=== PATIENT | female | born 1955 | race Caucasian/White ===

== ENCOUNTER 2021-02-21 09:02 | Day surgery (SDC) | payer MEDICARE, MEDICAID ==
[2021-02-14 14:49] LABS: ALBUMIN 3.8 G/DL (3.4-5.0); ALBUMIN/GLOBULIN RATIO 0.9 (1.1-1.5); ALKALINE PHOSPHATASE 114 IU/L (46-116); BASOPHILS # (AUTO) 0.1 X10'3 (0-0.2); BASOPHILS % (AUTO) 0.4 % (0-1); BLOOD UREA NITROGEN 14 MG/DL (7-18); BUN/CREATININE RATIO 17.3 (6.6-38.0); CALCIUM 9.9 MG/DL (8.5-10.1); CHLORIDE 102 MMOL/L (99-107); CREATININE 0.81 MG/DL (0.40-0.90); EOSINOPHILS # (AUTO) 0.2 X10'3 (0-0.9); EOSINOPHILS % (AUTO) 1.4 % (0-6); LYMPHOCYTES # (AUTO) 3.9 X10'3 (1.1-4.8); LYMPHOCYTES % (AUTO) 27.4 % (21-51); MEAN CORPUSCULAR HEMOGLOBIN 29.9 PG (27.0-31.0); MEAN CORPUSCULAR HGB CONC 34.1 g/dL (33.0-36.5); MEAN CORPUSCULAR VOLUME 87.7 FL (78-98); MONOCYTES # (AUTO) 0.8 X10'3 (0-0.9); MONOCYTES % (AUTO) 5.9 % (2-12); NEUTROPHILS # (AUTO) 9.3 X10'3 (1.8-7.7); NEUTROPHILS % (AUTO) 64.9 % (42-75); PRE OP ALT 35 U/L (30-65); PRE OP ANION GAP 12 (8-16); PRE OP AST 21 U/L (10-37); PRE OP BILIRUB, TOTAL 0.3 MG/DL (0.0-1.0); PRE OP HEMATOCRIT 42.5 % (35.0-45.0); PRE OP HEMOGLOBIN 14.5 g/dL (12.0-16.0); PRE OP PLATELET COUNT 336 X10'3 (140-440); PRE OP SODIUM 145 MMOL/L (135-145); RED BLOOD COUNT 4.85 X10'6 (4.20-5.60); TOTAL CARBON DIOXIDE 31.3 MMOL/L (24-32); eGFR 71 ML/MIN
[2021-02-14 14:53] LABS: PRE OP GLUCOSE 123 MG/DL (70-104)
[2021-02-14 14:54] LABS: PRE OP POTASSIUM 3.1 MMOL/L (3.4-5.1)
[~2021-02-21] VITALS: Ht 157.5 cm; Wt 88.9 kg
[~2021-02-21 09:02] MED LIST: AMLO2.5T5 PO; ASPI-1265 PO; BUPIVAcaine/PF 2.5 mg/ml (0.25%) 30ml vial ONE; BUPR-94 PO; CHLO25TA10 PO; CITA20TA27 PO; CYCL10TA26 PO; HYDR-3973 PO; IBUP-1985 PO; MELA10TA PO; PANT-47 PO; POTA10TA21 PO; ROPI0.5T4 PO; SIMV10TA98 PO; cefazolin/dext.iso 2gm/50ml 50 ML IV ONE; famotidine 20mg tablet PO ONE; ringers solution, lacted 1,000 ML IV SCH
[2021-02-21 09:30] VITALS: BP 116/66
[2021-02-21] MEDS ORDERED: LIDOcaine 0.5% (5mg/ml) 50ml vial ONE (11:16)
[2021-02-21] MEDS ORDERED: midazolam 1 mg/ML 2ml injection ONE (11:19)
[2021-02-21] MEDS ORDERED: fentaNYL/PF 50MCG/1 ML 2ML syringe ONE (11:19)
[2021-02-21 11:44] VITALS: BP 143/100
--- NOTE | 2021-02-21 11:44 | NUR ---
VReceived from OR via [facility] , accompanied by Anesthesiologist HOLGER and report given by Anesthesiolgist. PATIENT WITH 20G PIV IN LEFT HAND RUNNING LR AT 100. DENIES PAIN RIGHT WRIST DRESSING IS CDI + CAP REFILL AND SENSATION. Addendum: 02/21/21 at 1154 by Lion Lomas RN, RN Amended: Links added.
[2021-02-21] MEDS ORDERED: morphine 2 MG/ML inj. syringe IV PRN (11:45)
[2021-02-21] MEDS ORDERED: morphine 4 MG/ML inj SYRINge IV PRN (11:45)
[2021-02-21] MEDS ORDERED: meperidine/PF 25mg/ml syringe IV PRN ×3 (11:45)
[2021-02-21] MEDS ORDERED: ondansetron/PF 4mg/2ml inj IV PRN (11:45)
[2021-02-21] MEDS ORDERED: proCHLORperazine 10 MG/2 ml inj IV PRN (11:45)
[2021-02-21] MEDS ORDERED: ringers solution, lacted 1,000 ML IV SCH (11:45)
[2021-02-21 11:54] VITALS: BP 130/68
[2021-02-21 12:04] VITALS: BP 128/71
[2021-02-21 12:14] VITALS: BP 121/73
[2021-02-21 12:24] VITALS: BP 128/74
--- NOTE | 2021-02-21 12:34 | NUR ---
ALL CRITERIA FOR DC HOME HAS BEEN MET. IV OUT . ALL INSTRUCTIONS COVERED AND PATIENT DENIES PAIN. OUT VIA WHEELCHAIR TO PERSONAL VEHICLE WHERE SHE WAS TAKEN HOME. Addendum: 02/21/21 at 1308 by Lion Lomas RN, RN Amended: Links added.
== END 2021-02-21 12:34 | disposition home or self-care (01) ==
LOC: PAS 09:02
PROVIDERS: ATTEND Orthopaedic Surgery Hand Surgery
DX: G56.01 Carpal tunnel syndrome, right upper limb (principal); J44.9 Chronic obstructive pulmonary disease, unspecified; G47.30 Sleep apnea, unspecified; I10 Essential (primary) hypertension; F41.9 Anxiety disorder, unspecified; F32.9 Major depressive disorder, single episode, unspecified; K21.9 Gastro-esophageal reflux disease without esophagitis; G43.909 Migraine, unspecified, not intractable, without status migrainosus; E66.9 Obesity, unspecified; Z68.34 Body mass index [BMI] 34.0-34.9, adult; Z20.822 Contact with and (suspected) exposure to COVID-19; Z79.899 Other long term (current) drug therapy; Z88.8 Allergy status to other drugs, medicaments and biological substances; Z90.710 Acquired absence of both cervix and uterus; Z90.49 Acquired absence of other specified parts of digestive tract; Z98.890 Other specified postprocedural states; Z87.891 Personal history of nicotine dependence
CPT/HCPCS: 29848; 36415; 80053; 82948; 85025; 93005; J2001; J2250; J3010; J3490; U0003; U0005; Z7506; Z7512; A4215; A7000; J7120

== ENCOUNTER 2021-04-07 05:22 | Day surgery (SDC) | payer MEDICARE, MEDICAID ==
[2021-03-31 12:02] LABS: BASOPHILS % (AUTO) 0.6 % (0-1); EOSINOPHILS # (AUTO) 0.2 X10'3 (0-0.9); EOSINOPHILS % (AUTO) 1.4 % (0-6); LYMPHOCYTES # (AUTO) 3.8 X10'3 (1.1-4.8); LYMPHOCYTES % (AUTO) 31.6 % (21-51); MEAN CORPUSCULAR HEMOGLOBIN 29.4 PG (27.0-31.0); MEAN CORPUSCULAR HGB CONC 33.8 g/dL (33.0-36.5); MEAN PLATELET VOLUME 7.7 FL (7.4-10.4); MONOCYTES # (AUTO) 0.7 X10'3 (0-0.9); MONOCYTES % (AUTO) 5.9 % (2-12); NEUTROPHILS # (AUTO) 7.3 X10'3 (1.8-7.7); NEUTROPHILS % (AUTO) 60.5 % (42-75); PRE OP HEMATOCRIT 42.1 % (35.0-45.0); PRE OP HEMOGLOBIN 14.2 g/dL (12.0-16.0); PRE OP PLATELET COUNT 341 X10'3 (140-440); RED BLOOD COUNT 4.84 X10'6 (4.20-5.60); RED CELL DISTRIBUTION WIDTH 14.2 % (11.5-14.5)
[2021-03-31 12:03] LABS: BASOPHILS # (AUTO) 0.1 X10'3 (0-0.2)
[2021-03-31 12:17] LABS: ALBUMIN 3.6 G/DL (3.4-5.0); ALBUMIN/GLOBULIN RATIO 0.8 (1.1-1.5); ALKALINE PHOSPHATASE 90 IU/L (46-116); BLOOD UREA NITROGEN 13 MG/DL (7-18); CALCIUM 9.6 MG/DL (8.5-10.1); CHLORIDE 103 MMOL/L (99-107); CREATININE 0.81 MG/DL (0.40-0.90); PRE OP ALT 25 U/L (30-65); PRE OP ANION GAP 9 (8-16); PRE OP AST 17 U/L (10-37); PRE OP BILIRUB, TOTAL 0.3 MG/DL (0.0-1.0); PRE OP SODIUM 142 MMOL/L (135-145); TOTAL CARBON DIOXIDE 30.3 MMOL/L (24-32); TOTAL PROTEIN 7.9 G/DL (6.4-8.2); eGFR 71 ML/MIN
[2021-03-31 12:34] LABS: PRE OP POTASSIUM 2.9 MMOL/L (3.4-5.1)
[2021-03-31 12:35] LABS: PRE OP GLUCOSE 105 MG/DL (70-104)
[~2021-04-07] VITALS: Ht 160 cm; Wt 86.7 kg
[~2021-04-07 05:22] MED LIST changes: -BUPIVAcaine/PF 2.5 mg/ml (0.25%) 30ml vial ONE; -cefazolin/dext.iso 2gm/50ml 50 ML IV ONE; -famotidine 20mg tablet PO ONE
[2021-04-07] MEDS ORDERED: famotidine 20mg tablet PO ONE (05:30)
[2021-04-07] MEDS ORDERED: cefazolin/dext.iso 2gm/50ml IV ONE (05:30)
[2021-04-07 05:45] VITALS: BP 135/79
[2021-04-07] MEDS ORDERED: BUPIVAcaine 0.5% inj/PF 30 ML ONE (06:53)
[2021-04-07 06:54] LABS: ISTAT CREATININE 0.7 mg/dL (0.6-1.1); ISTAT IONIZED CALCIUM 1.2 mmol/L (1.03-1.32); POC BUN/CREATININE RATIO 25.7 (6.6-38.0)
[2021-04-07] MEDS ORDERED: LIDOcaine 0.5% (5mg/ml) 50ml vial ONE (07:13)
[2021-04-07] MEDS ORDERED: BUPIVAcaine 0.5% inj/PF 30 ml vial IJ ONE (07:15)
[2021-04-07] MEDS ORDERED: BUPIVAcaine 2.5mg/ml inj 50ml vial (contains preservative) IJ ONE (07:15)
[2021-04-07] MEDS ORDERED: midazolam 1 mg/ML 2ml injection ONE (07:16)
[2021-04-07] MEDS ORDERED: fentaNYL/PF 50MCG/1 ML 2ML syringe ONE ×2 (07:16→07:41)
[2021-04-07] MEDS ORDERED: propofol inj 20 ML IV ONE (08:02)
[2021-04-07 08:20] VITALS: BP 103/75
--- NOTE | 2021-04-07 08:20 | NUR ---
ADMITTED TO PACU FROM OR ACCOMPANIED BY ANESTHESIA. INTIAL PHYSICAL ASSESSMENT DONE AND RECORDED. REPORT RECEIVED FROM ANESTHESIA.
[2021-04-07 08:30] VITALS: BP 119/69
[2021-04-07 08:40] VITALS: BP 132/80
[2021-04-07 08:50] VITALS: BP 130/78
--- NOTE | 2021-04-07 09:00 | NUR ---
DISCHARGE CRITERIA MET, DISCHARGE INSTRUCTIONS GIVEN, DEMONSTRATES VERBAL UNDERSTANDING. DISCHARGED HOME IN GOOD CONDITION.
== END 2021-04-07 09:00 | disposition home or self-care (01) ==
LOC: PAS 05:22 → EDUNIT# 07:30 → PAS 09:00
PROVIDERS: ATTEND Orthopaedic Surgery Hand Surgery
DX: G56.02 Carpal tunnel syndrome, left upper limb (principal); M65.342 Trigger finger, left ring finger; M62.442 Contracture of muscle, left hand; D64.9 Anemia, unspecified; J45.909 Unspecified asthma, uncomplicated; E78.00 Pure hypercholesterolemia, unspecified; I10 Essential (primary) hypertension; G43.909 Migraine, unspecified, not intractable, without status migrainosus; G47.33 Obstructive sleep apnea (adult) (pediatric); G25.81 Restless legs syndrome; F41.9 Anxiety disorder, unspecified; F32.9 Major depressive disorder, single episode, unspecified; K21.9 Gastro-esophageal reflux disease without esophagitis; M19.90 Unspecified osteoarthritis, unspecified site; Z87.440 Personal history of urinary (tract) infections; Z87.891 Personal history of nicotine dependence; Z79.899 Other long term (current) drug therapy; Z88.8 Allergy status to other drugs, medicaments and biological substances; Z88.2 Allergy status to sulfonamides; Z90.49 Acquired absence of other specified parts of digestive tract; Z90.710 Acquired absence of both cervix and uterus; Z98.890 Other specified postprocedural states; Z86.73 Personal history of transient ischemic attack (TIA), and cerebral infarction without residual deficits; Z20.822 Contact with and (suspected) exposure to COVID-19
CPT/HCPCS: 26055; 26440; 36415; 64721; 80047; 80053; 85025; A6222; J2001; J2250; J2704; J3010; U0003; U0005; Z7506; Z7512; A4215; A6449; J0690; J3490; J7120; S0020

== ENCOUNTER 2023-03-05 06:59 | Day surgery (SDC) | payer MEDICARE, MEDICAID ==
[~2023-03-05] VITALS: Ht 160 cm; Wt 80.1 kg
[~2023-03-05 06:59] MED LIST changes: +ALBU18HF2 PO; +BUPIVAcaine/PF 2.5mg/ml (0.25%) 10ml vial ONE; -BUPR-94 PO; +BUPR1PAT20 TD; +DIVA500T9 PO; +LIDO700A47 TD; -MELA10TA PO; -PANT-47 PO; -POTA10TA21 PO; +ROPI0.5T37 PO; -ROPI0.5T4 PO; +SUMA50TA17 PO; +albuterol 2.5 MG/3 ML nebule NEB ONE; +cefazolin 2gm/D5W 100mL 100 ML IV ONE; +famotidine 20mg tablet PO ONE
[2023-03-05 07:15] VITALS: BP 112/61; PULSE 57; PULSE 97; RESP 14; TEMP 97.4; O2SAT 97
[2023-03-05 08:11] LABS: BASOPHILS # (AUTO) 0.1 X10'3 (0-0.2); BASOPHILS % (AUTO) 0.6 % (0-1); EOSINOPHILS # (AUTO) 0.2 X10'3 (0-0.9); EOSINOPHILS % (AUTO) 2.1 % (0-6); LYMPHOCYTES # (AUTO) 3.3 X10'3 (1.1-4.8); LYMPHOCYTES % (AUTO) 29.3 % (21-51); MEAN CORPUSCULAR HEMOGLOBIN 29.3 PG (27.0-31.0); MEAN CORPUSCULAR VOLUME 88.8 FL (78-98); MEAN PLATELET VOLUME 7.8 FL (7.4-10.4); MONOCYTES # (AUTO) 0.9 X10'3 (0-0.9); MONOCYTES % (AUTO) 7.8 % (2-12); NEUTROPHILS # (AUTO) 6.7 X10'3 (1.8-7.7); NEUTROPHILS % (AUTO) 60.2 % (42-75); PRE OP HEMOGLOBIN 13.5 g/dL (12.0-16.0); PRE OP PLATELET COUNT 267 X10'3 (140-440); PRE OP WHITE BLOOD COUNT 11.1 10'3 (4.8-10.8); RED BLOOD COUNT 4.62 X10'6 (4.20-5.60); RED CELL DISTRIBUTION WIDTH 14.2 % (11.5-14.5)
[2023-03-05 08:29] LABS: ALBUMIN 3.2 G/DL (3.4-5.0); ALBUMIN/GLOBULIN RATIO 0.8 (1.1-1.5); ALKALINE PHOSPHATASE 77 IU/L (46-116); BLOOD UREA NITROGEN 16 MG/DL (7-18); BUN/CREATININE RATIO 20.3 (10.0-20.0); CALCIUM 9.8 MG/DL (8.5-10.1); CHLORIDE 101 MMOL/L (99-107); CREATININE 0.79 MG/DL (0.40-0.90); PRE OP ALT 25 U/L (30-65); PRE OP ANION GAP 8 (8-16); PRE OP AST 19 U/L (10-37); PRE OP BILIRUB, TOTAL 0.4 MG/DL (0.0-1.0); PRE OP POTASSIUM 3.4 MMOL/L (3.4-5.1); PRE OP SODIUM 140 MMOL/L (135-145); TOTAL CARBON DIOXIDE 31.1 MMOL/L (24-32); TOTAL PROTEIN 7.1 G/DL (6.4-8.2); eCRCL 58 ML/MIN; eGFR 73 ML/MIN
[2023-03-05 08:31] LABS: PRE OP GLUCOSE 93 MG/DL (70-104)
[2023-03-05] MEDS ORDERED: fentaNYL/PF 50MCG/1 ML 2ML syringe ONE (09:14)
[2023-03-05] MEDS ORDERED: midazolam 1 mg/ML 2ml injection ONE (09:15)
[2023-03-05] MEDS ORDERED: LIDOcaine 0.5% (5mg/ml) 50ml vial ONE (09:17)
[2023-03-05] MEDS ORDERED: BUPIVAcaine 0.5% W/EPI /PF 10ml vial IJ ONE (09:25)
[2023-03-05] MEDS ORDERED: propofol inj 20 ML IV ONE (09:36)
[2023-03-05 10:08] VITALS: BP 136/74; PULSE 63; RESP 16; O2SAT 95
--- NOTE | 2023-03-05 10:08 | NUR ---
Received from OR via [facility] , accompanied by Anesthesiologist HOLGER and report given by Anesthesiolgist. PT IS EASILY ROUSED, ON RA W/ [id number]% 20G IV PATENT TO R HAND W/ LR RUNNING 100 ML PER HOUR. L HAND WRAPPED IN [place]S - D&I. MOVES ALL EXTREMITIES. DENIES PAIN - WILL CONTNUE TO MONITOR. ENCOURAGED TO DEEP BREATHE Addendum: 03/05/23 at 1025 by Andreina Zapata RN Amended: Links added.
[2023-03-05 10:20] VITALS: BP 136/62; PULSE 63; RESP 19; O2SAT 97
[2023-03-05] MEDS ORDERED: meperidine/PF 25mg/ml syringe IV PRN ×3 (10:20)
[2023-03-05] MEDS ORDERED: ringers solution, lacted 1,000 ML IV SCH (10:20)
[2023-03-05] MEDS ORDERED: morphine 4 MG/ML inj SYRINge IV PRN (10:20)
[2023-03-05] MEDS ORDERED: proCHLORperazine 10 MG/2 ml inj IV PRN (10:20)
[2023-03-05] MEDS ORDERED: ondansetron/PF 4mg/2ml inj IV PRN (10:20)
[2023-03-05] MEDS ORDERED: morphine 2 MG/ML inj. syringe IV PRN (10:20)
[2023-03-05 10:40] VITALS: BP 123/73; PULSE 63; RESP 13; O2SAT 96
[2023-03-05 10:50] VITALS: BP 107/55; PULSE 56; RESP 20; O2SAT 95
[2023-03-05 11:00] VITALS: BP 122/73; PULSE 57; RESP 15; O2SAT 96
--- NOTE | 2023-03-05 11:08 | NUR ---
PT WIDE AWAKE AND ALERT. VOICES NO PAIN, UNTIL IN THE W/C HEADING FOR EXIT... INSTRUCTED TO TAKE PAIN MED PROMPTLY ON RETURN HOME. ON RA THROUGHOUT STAY IN RR MAINTAINING SAO2 AT 95-96%. L WRIST DRESSING D&I. IV TO R HAND DC'D. DANIEL WATTS SR. DC INSTRUCTIONS GIVEN VERBALLY. WRITTEN INSTRUCTIONS TO BE MAILED TODAY. ABLE TO GET UP TO [facility] [place] S/S HEMODYNAMIC INSTABILITY. DC'D TO SISTER "[facility]" WITHOUT INCIDENT. Addendum: 03/05/23 at 1131 by Andreina Zapata RN Amended: Links added. Addendum: 03/05/23 at 1155 by Andreina Zapata RN TC TO PT TO INFORM THAT DC INSTRUCTIONS WILL BE MAILED. ABLE TO VERBALIZED PERTINENT INSTRUCTIONS W/OUT PROMPTING.
== END 2023-03-05 11:08 | disposition home or self-care (01) ==
LOC: PAS 06:59
PROVIDERS: ATTEND Orthopaedic Surgery Hand Surgery
DX: G56.02 Carpal tunnel syndrome, left upper limb (principal); I10 Essential (primary) hypertension; E78.00 Pure hypercholesterolemia, unspecified; J44.9 Chronic obstructive pulmonary disease, unspecified; G47.30 Sleep apnea, unspecified; G43.909 Migraine, unspecified, not intractable, without status migrainosus; F41.9 Anxiety disorder, unspecified; M19.90 Unspecified osteoarthritis, unspecified site; Z87.891 Personal history of nicotine dependence; Z79.891 Long term (current) use of opiate analgesic; Z79.899 Other long term (current) drug therapy; Z88.8 Allergy status to other drugs, medicaments and biological substances; Z90.49 Acquired absence of other specified parts of digestive tract; Z90.710 Acquired absence of both cervix and uterus; Z98.890 Other specified postprocedural states
CPT/HCPCS: 36415; 64721; 80053; 82948; 85025; 93005; J0690; J2250; J2704; J3010; J3490; J7030; J7120; S0020; Z7506; Z7512; A4215